=== PATIENT | male | born 1970 | race Caucasian/White ===

== ENCOUNTER 2021-06-13 07:45 | Day surgery (SDC) | payer MEDICAID, SELFPAY ==
[~2021-06-13] VITALS: Ht 188 cm; Wt 83.5 kg
[2021-06-13] MEDS ORDERED: fentaNYL CITRATE/PF 100 MCG/2 ML AMP ONE (09:05)
[2021-06-13] MEDS ORDERED: MIDAZOLAM HCL 5 MG/5 ML VIAL ONE (09:05)
[2021-06-13 11:48] VITALS: BP_SYST 111
== END 2021-06-13 10:45 | disposition home or self-care (01) ==
LOC: SDS 07:45 → SMU 07:46 → SDS 10:45
PROVIDERS: ATTEND Internal Medicine
DX: R10.31 Right lower quadrant pain (principal); D12.5 Benign neoplasm of sigmoid colon; D12.3 Benign neoplasm of transverse colon; Z20.822 Contact with and (suspected) exposure to COVID-19; Z79.899 Other long term (current) drug therapy
CPT/HCPCS: 45380; 45385; 88305; 96365; 99152; G0378; J2250; J3010; U0003